=== PATIENT | male | born 1975 | race Caucasian/White ===

== ENCOUNTER 2022-06-15 16:05 | Emergency (ER) | payer SELFPAY ==
[~2022-06-15] VITALS: Ht 175.3 cm; Wt 68.2 kg
[~2022-06-15 16:05] MED LIST: BENZ15SO PO; CHLO118L3 PO; CHLO118M PO; CLIN150C8 PO
[2022-06-15 16:22] VITALS: BP 142/79
== END 2022-06-15 22:00 | disposition left against medical advice (07) ==
LOC: ER 16:05
DX: H91.90 Unspecified hearing loss, unspecified ear (principal); Z53.21 Procedure and treatment not carried out due to patient leaving prior to being seen by health care provider